=== PATIENT | male | born 1955 | race Caucasian/White ===

== ENCOUNTER → 2018-09-29 | Outpatient (CLI) | payer BC ==
--- NOTE | 2018-09-29 11:12 | PCVCIMAG ---
APPROVED REPORT Study performed: 09/29/2018 09:59:31 Exam: Stress Echocardiogram Indication: CAD , Hyperlipidemia, Hypertension Patient Location: Echo lab Stress Nurse: Kelsie Muhammad RN Room #: 2 Status: routine Ht: 5 ft 4 in HR: 61 bpm BP: 114/66 mmHg Rhythm: NSR Medical History Medical History: CAD non obstructive, HTN, Hyperlipidemia Cardiac Risk Factors: HTN, Hyperlipidemia Previous Cardiac Procedures: none Pretest Chest Pain Characteristics: No chest pain Exercise History: Physically active Procedure The patient underwent an Exercise Stress Test using the Fox Protocol. Blood pressure, heart rate, and EKG were monitored. An Echocardiogram was performed by household appliances service technician in four stages in quad fashion. At peak stress, four selected images were obtained and placed side by side with resting images for comparison. Stress Test Details Stress Test: Exercise stress testing was performed using a Fox protocol. HR Resting HR: 61 bpmMax Heart Rate (APMHR): 156 bpm Max HR Achieved: 164 bpmTarget HR (85% APMHR): 132 bpm % of APMHR: 105 Recovery HR: 85 bpm HR response to stress: Normal HR response to stress BP Resting BP: 114/66 mmHg Max BP: 180/60 mmHg Recovery BP: 156/66 mmHg BP response to stress: Normal blood pressure response to stress. ECG Resting ECG: Sinus Rhythm Stress ECG: Sinus Rhythm ST Change: Non-ischemic Arrhythmia: Rare PVCs Recovery ECG: Sinus Rhythm Recovery ST Change: Non-ischemic Recovery Arrhythmia: None Clinical Reason for Termination: Maximal effort Stress Symptoms: none Exercise duration: 15 min 31 sec Highest Stage Achieved: Stage 6: 5.5 mph at 20% grade. Exercise capacity: 18.8 METs Overall Exercise Capacity for Age: Excellent Scale: Active Angina Score: None No complications. Stress ECG Conclusion The patient exercised according to the FOX protocol for 15:31 mins; achieving a work level of 18.8 METS. The resting heart rate of 61 bpm oziel to a maximum heart rate of 164 bpm. This value represent 105% of the maximal, age-predicted heart rate. The resting blood pressure of 114/66 mmHg, oziel to a maximum blood pressure of 180/60 mmHg. The exercise test was stopped due to fatigue . Pre-Stress Echo The resting Echocardiogram showed normal left ventricular contractility with an estimated Ejection Fraction of about 55-60%. Normal wall motion in all segments on baseline images. Post-Stress Echo The stress Echocardiogram showed normal left ventricular contractility with an estimated Ejection Fraction of about 65-70%. Normal augmentation of wall motion in all segments on post stress images. Clinical No clinical or ECG evidence for ischemia. Conclusion Clinical Response: Non-ischemic Exercise Capacity: Superior Stress ECG Response: Non-ischemic Stress Echo Images: Non-ischemic No clinical, EKG or echocardiographic evidence for ischemia. <Conclusion> No clinical, EKG or echocardiographic evidence for ischemia.
== END | disposition home or self-care (01) ==
LOC: PCVCIMAG 09:51
PROVIDERS: ATTEND Internal Medicine Cardiovascular Disease
DX: I25.10 Atherosclerotic heart disease of native coronary artery without angina pectoris (principal); I10 Essential (primary) hypertension; R06.00 Dyspnea, unspecified
CPT/HCPCS: 93325; 93351